=== PATIENT | female | born 1995 | race Caucasian/White ===

== ENCOUNTER → 2020-11-03 11:18 | Outpatient (BNVA) | payer SELFPAY | DX: Z02.79 Encounter for issue of other medical certificate (principal) ==

== ENCOUNTER → 2021-04-29 13:40 | Outpatient (BNVA) | payer SELFPAY | DX: Z76.89 Persons encountering health services in other specified circumstances (principal) ==

== ENCOUNTER 2022-02-08 10:22 | Outpatient (REF) | payer SELFPAY ==
[2022-02-08 11:42] LABS: HBS Num1 17.39 mIU/mL (0-7.99); ~Hepatitis B Surface Antibody REACTIVE (Nonreactive)
[2022-02-10 22:52] LABS: TS Negative Control Passed; TS Panel A 0; TS Panel B 0; TS Positive Control Passed; TSpotTB Negative (Negative)
== END 2022-02-08 10:23 | disposition home or self-care (01) ==
LOC: HO.LAB 10:22
PROVIDERS: PCP Registered Nurse; Visit Provider Internal Medicine
DX: Z02.1 Encounter for pre-employment examination (principal)
CPT/HCPCS: 36415; 86481; 86706